=== PATIENT | male | born 1975 | race Two or more races ===

== ENCOUNTER 2025-05-10 05:43 | Inpatient (IN) | payer OTHER ==
[~2025-05-10] VITALS: Ht 175.3 cm; Wt 116.0 kg
[2025-05-10 06:03] VITALS: BP 142/90; PULSE 68; RESP 20; TEMP 96.3; O2SAT 97
--- NOTE | 2025-05-10 06:24 | ED.PDOC ---
HPI Comments 49-year-old male presents here with chest discomfort. He states this occurred earlier this morning. He states it awoke him up from sleep. Reports it as a pressure-like tightening squeezing pain to his mid chest with no radiation. He had had associated dizziness, nausea, dry heaving. He stated this lasted 45 minutes. EMS was called where he was given baby aspirin and nitroglycerin. He states once he was given the nitroglycerin the pain went away completely. No history of similar type of pain in the past. Patient is not a diabetic, nonsmoker no hypertension. No history of similar type of pain. Currently pain free. Denies any recent cough cold runny nose fever or chills. Chief Complaint: Chest Pain Time Seen by MD: 06:25 Reviewed Notes: Nurses Notes, Casting Finisher Notes, Medications, Allergies Allergies: Coded Allergies: No Known Drug Allergy (Verified Allergy, Unknown, 05/10/25) Information Source: Patient, Emergency Med Personnel Mode of Arrival: EMS Severity: Moderate Timing: Hours Duration: Since onset Prehospital treatment: None Location: Substernal Onset: At Rest Cardiac Risk Factors: None PE Risk Factors: None History of: None Modifying Factors: Nothing Associated Signs and Symptoms: None Past Medical History PAST MEDICAL HISTORY: Denies Surgical History: Denies all surgeries Family History Family History: Unknown Social History Smoker: Non-Smoker Alcohol: Denies ETOH Use Drugs: Denies Drug Use Lives In: Home Constitutional: denies: chills, diaphoresis, fatigue, fever, malaise, sweats, weakness, others EENTM: denies: blurred vision, double vision, ear bleeding, ear discharge, ear drainage, ear pain, ear ringing, eye pain, eye redness, hearing loss, mouth pain, mouth swelling, nasal discharge, nose bleeding, nose congestion, nose pain, photophobia, tearing, throat pain, throat swelling, voice changes, others Respiratory: denies: cough, hemoptysis, orthopnea, SOB at rest, shortness of breath, SOB with excertion, stridor, wheezing, others Cardiovascular: reports: chest pain; denies: dizzy spells, diaphoresis, Dyspnea on exertion, edema, irregular heart beat, left arm pain, lightheadedness, palpitations, PND, syncope, others Gastrointestinal: denies: abdomen distended, abdominal pain, blood streaked bowels, constipated, diarrhea, dysphagia, difficulty swallowing, hematemesis, melena, nausea, poor appetite, poor fluid intake, rectal bleeding, rectal pain, vomiting, others Genitourinary: denies: burning, dysuria, flank pain, frequency, hematuria, incontinence, penile discharge, penile sore, pain, testicle pain, testicle swelling, urgency, others Neurological: denies: dizziness, fainting, headache, left sided numbness, left sided weakness, numbness, paresthesia, pre-existing deficit, right sided numbness, right sided weakness, seizure, speech problems, tingling, tremors, weakness, others Musculoskeletal: denies: back pain, gout, joint pain, joint swelling, muscle pain, muscle stiffness, neck pain, others Integumetry: denies: bruises, change in color, change in hair/nails, dryness, laceration, lesions, lumps, rash, wounds, others Allergic/Immunocompromised: denies: Difficulty Healing, Frequent Infections, Hives, Itching, others Hematologic/Lymphatic: denies: anemia, blood clots, easy bleeding, easy bruising, swollen glands, others Endocrine: denies: excessive hunger, excessive sweating, excessive thirst, excessive urination, flushing, intolerance to cold, intolerance to heat, unexplained weight gain, unexplained weight loss, others Psychiatric: denies: anxiety, bipolar disorder, depression, hopeless, panic disorder, schizophrenia, sleepless, suicidal, others All Other Systems: Reviewed and Negative Physical Exam General Appearance: No Apparent Distress, Normal HEENT: Normal ENT Inspection, Pharynx Normal Neck: Full Range of Motion, Non-Tender, Normal, Normal Inspection Respiratory: Chest Non-Tender, Lungs Clear, No Accessory Muscle Use, No Respiratory Distress, Normal Breath Sounds Cardiovascular: No Edema, No Murmur, No Gallop, Normal Peripheral Pulses, Regular Rate/Rhythm Breast Exam: Deferred Gastrointestinal: No Organomegaly, Non Tender, No Pulsatile Mass, Normal Bowel Sounds, Soft Genitalia: Deferred Pelvic: Deferred Rectal: Deferred Extremities: No calf tenderness, Normal capillary refill, Normal inspection, Normal range of motion, Non-tender, No pedal edema Musculoskeletal : Apperance: Normal Neurologic: Alert, enrollment manager II-XII nml as Tested, No Motor Deficits, Normal Affect, Normal Mood, No Sensory Deficits Cerebellar Function: Normal Reflexes: Normal Skin: Dry, Normal Color, Warm Lymphatic: No Adenopathy EKG EKG #1: Comments 5:48 a.m.. Rate of 59 sinus rhythm with no significant ST changes EKG #2: Comments 6:48 a.m.. Sinus rhythm rate of 57, no significant ST changes. Was a procedure done? Was a procedure done?: No CP Differential Dx Differential Diagnosis: Heart Failure, DC, PSVT, Pulmonary Embolus Differential Diagnosis: HTN Essential, HTN Accelerated Differential Diagnosis: Angina, Aortic dissection, Chest Wall Pain, Costochondritis, Gastritis, Myocardial Infarction, Pericarditis, Pneumothorax, Pulmonary Embolus X-Ray, Labs, Meds, VS Vital Signs Date Time Temp Pulse Resp B/P (MAP) Pulse Ox O2 Delivery O2 Flow Rate FiO2 05/10/25 06:48 57 05/10/25 06:19 97.2 62 22 138/83 (101) 97 97.2 05/10/25 05:48 59 Lab Test 05/10/25 06:14 05/10/25 06:11 Range/Units White Blood Count 9.9 4.4-10.8 10^3/uL Red Blood Count 4.57 4.5-5.90 10^6/uL Hemoglobin 15.3 13.5-17.5 g/dL Hematocrit 45.2 41.0-53.0 % Mean Corpuscular Volume 98.8 80.0-100.0 fL Mean Corpuscular Hemoglobin 33.5 H 28.0-32.0 pg Mean Corpuscular Hemoglobin Concent 33.9 32.0-36.0 g/dL Red Cell Distribution Width 12.8 11.8-14.3 % Platelet Count 245 140-450 10^3/uL Mean Platelet Volume 7.7 6.9-10.8 fL Neutrophils (%) (Auto) 71.9 37.0-80.0 % Lymphocytes (%) (Auto) 17.2 10.0-50.0 % Monocytes (%) (Auto) 7.3 0.0-12.0 % Eosinophils (%) (Auto) 2.9 0.0-7.0 % Basophils (%) (Auto) 0.7 0.0-2.0 % Neutrophils # (Auto) 7.1 1.6-8.6 10 ^3/uL Lymphocytes # (Auto) 1.7 0.4-5.4 10 ^3/uL Monocytes # (Auto) 0.7 0-1.3 10 ^3/uL Eosinophils # (Auto) 0.3 0-0.8 10 ^3/uL Basophils # (Auto) 0.1 0-0.2 10 ^3/uL Nucleated Red Blood Cells 0.0 % Sodium Level 143 136-145 mmol/L Potassium Level 3.5 3.5-5.1 mmol/L Chloride Level 109 H 98-107 mmol/L Carbon Dioxide Level 27 20-31 mmol/L Anion Gap 7 5-15 Blood Urea Nitrogen 16 9-23 mg/dL Creatinine Pending Glomerular Filtration Rate Calc Pending BUN/Creatinine Ratio Pending Serum Glucose 119 H 74-106 mg/dL Calcium Level 9.6 8.7-10.4 mg/dL Troponin I High Sensitivity 16 </=54 ng/L B-Type Natriuretic Peptide Pending 49-year-old male presents here with chest discomfort that awoke him up from sleep. Patient was given aspirin by EMS and nitroglycerin. Pain improved completely with nitroglycerin. At this time EKG x2 within normal limits. First troponin negative. CBC BMP within normal limits. At this time though I am concerned about acute coronary syndrome. Hospitalist team has been contacted for admission. Time of 1ST Reevaluation: 06:55 Reevaluation 1ST: Unchanged Patient Education/Counseling: Diagnosis, Treatment Family Education/Counseling: No Family Present SEPSIS Sepsis Screen Physician Orders Basic Metabolic Panel (05/10/25 06:02) Electrocardigram (05/10/25 06:02) B-Type Natriuretic Peptide (05/10/25 06:02) Chest Xray 1 View (05/10/25 06:02) Vital Signs Q1HR (05/10/25 06:02) Electrocardigram (05/10/25 07:02) Electrocardigram (05/10/25 09:02) Troponin-I Hs (05/10/25 07:02) Troponin-I Hs (05/10/25 09:02) Vital Signs Date Time Temp Pulse Resp B/P (MAP) Pulse Ox O2 Delivery O2 Flow Rate FiO2 05/10/25 06:48 57 05/10/25 06:19 97.2 62 22 138/83 (101) 97 97.2 05/10/25 05:48 59 Laboratory Tests Test 05/10/25 06:14 White Blood Count 9.9 10^3/uL (4.4-10.8) Departure 1 Departure Time of Disposition: 08:00 Impression: Primary Impression: Chest pain Qualified Codes: R07.9 - Chest pain, unspecified Disposition: ADMITTED INPATIENT Condition: Stable Critical Care Note Critical Care Time?: No Stability Stability form required: No Heart Score Heart Score: Heart Score Response (Comments) Value History Highly Suspicious 2 EKG Normal 0 Age 45-64 1 Risk Factors 1 or 2 risk factors 1 Troponin Normal limit 0 Total 4 I personally scribed for ERNIE GORMAN MD ([email or web address]) on 05/10/25 at 06:24. Electronically submitted by Lissa Jones ([email or web address]). I personally scribed for ERNIE GORMAN MD ([email or web address]) on 05/10/25 at 06:56. Electronically submitted by Lissa Jones [email or web address]). ERNIE GORMAN MD May 10, 2025 06:24
[2025-05-10 06:53] LABS: Hematocrit 45.2 % (41.0-53.0); Hemoglobin 15.3 g/dL (13.5-17.5); Mean Corpuscular Hemoglobin 33.5 pg (28.0-32.0); Mean Corpuscular Volume 98.8 fL (80.0-100.0); Nucleated Red Blood Cells % 0.0 %
[2025-05-10 06:58] LABS: Potassium 3.5 mmol/L (3.5-5.1); Sodium 143 mmol/L (136-145)
[2025-05-10 06:59] LABS: Anion Gap 7 (5-15); Calcium 9.6 mg/dL (8.7-10.4); Carbon Dioxide 27 mmol/L (20-31); Chloride 109 mmol/L (98-107)
[2025-05-10 07:04] LABS: Blood Urea Nitrogen 16 mg/dL (9-23)
[2025-05-10 07:14] LABS: Glucose 119 mg/dL (74-106)
[2025-05-10 07:26] LABS: BUN/Creatinine Ratio 16.0 (10.0-20.0)
--- NOTE | 2025-05-10 07:29 | DVH ---
CHEST RADIOGRAPH Indication: cp Technique: XY CHEST XRAY 1 VIEW Comparison: None FINDINGS: The cardiac silhouette is unremarkable. The lungs demonstrate bilateral lower lobe airspace opacifica tion. The pulmonary vasculature is unremarkable. There is no pleural effusion.. There is no pneumotho rax. IMPRESSION: Bilateral lower lobe airspace opacification
[2025-05-10] MEDS ORDERED: ACETAMINOPHEN 325 MG TAB PO PRN (08:15)
[2025-05-10] MEDS ORDERED: MORPHINE SULFATE INJ 2 MG/ml SYRG IV PRN ×2 (08:15)
[2025-05-10] MEDS ORDERED: HYDROcodone-ACET 5/325MG TAB PO PRN (08:15)
[2025-05-10] MEDS ORDERED: NITROGLYCERIN 0.4 MG SL TAB SL PRN (08:15)
[2025-05-10] MEDS ORDERED: ONDANSETRON HCL 4 MG/2 ML VIAL IV PRN (08:15)
--- NOTE | 2025-05-10 08:15 | DVHHP2 ---
History of Present Illness Reason for Visit: Chest pain History of Present Illness 49-year-old male with no known past medical history aside from marijuana use presents to the emergency department with a chief complaint of chest pain. The patient reports waking up with a sharp, pressure-like, tightening, and squeezing pain in the mid chest without radiation. He describes the pain as similar to a "charley horse" cramp in the chest. The episode lasted approximately 45 minutes and was associated with shortness of breath, nausea, dry heaving, and lightheadedness. Due to the severity of symptoms, the patient called 911 and was administered aspirin and nitroglycerin by EMS, after which the chest pain resolved. He denies prior similar episodes. Family history is significant for cardiovascular disease on the paternal side, with his grandfather having from a myocardial infarction and his father having a history of angina. The patient's BMI is 38.8. Initial workup in the emergency department revealed a negative 1st troponin, a 12 lead ECG showing normal sinus rhythm with no acute ischemic changes, and a chest x-ray showing bilateral lower low lobe airspace opacities. Past Medical History Denies Past Surgical History Denies Family History Reviewed, non-contributory to the management of this case. Past Social History Marijuana use Denies tobacco or alcohol abuse Review of Systems Constitutional: Yes: Malaise; No: Fever, Chills, Sweats, Weakness, Other Eyes: No: Pain, Vision change, Conjunctivae inflammation, Eyelid inflammation, Other, Redness ENT: No: Ear pain, Ear discharge, Nose pain, Nose discharge, Nose congestion, Mouth pain, Mouth swelling, Throat pain, Throat swelling, Other Respiratory: No: Cough, Dry, Shortness of breath, SOB with excertion, Wheezing, Hemoptysis, Pleuritic Pain, Sputum, Wheezing, Other Cardiovascular: Chest Pain, Lt Headedness, Other; No: Palpitations, Orthopnea, Paroxysmal Noc. Dyspnea, Edema Gastrointestinal: Nausea; No: Vomiting, Abdominal Pain, Diarrhea, Constipation, Melena, Hematochezia, Other Genitourinary: No Dysuria, No Frequency, No Incontinence, No Hematuria, No Retention, No Other Musculoskeletal: No: other, neck pain, shoulder pain, arm pain, back pain, hand pain, leg pain, foot pain Skin: No: Rash, Lesions, Jaundice, Bruising, Other Neurological: No: Weakness, Numbness, Incoordination, Change in speech, Confusion, Seizures, Other Allergies: Coded Allergies: No Known Drug Allergy (Verified Allergy, Unknown, 05/10/25) Medications Current Medications Medications Dose Ordered Sig/Bev Route Start Time Stop Time Status Last Admin Dose Admin Acetaminophen/ Hydrocodone Bitart 1 tab Q4HP PRN PO 05/10/25 08:15 UNV Ondansetron HCl 4 mg Q4HP PRN IV 05/10/25 08:15 UNV Enoxaparin Sodium 40 mg DAILY SC 05/10/25 10:00 UNV Acetaminophen 650 mg Q6HP PRN PO 05/10/25 08:15 UNV Morphine Sulfate 2 mg Q4HPRN PRN IV 05/10/25 08:15 UNV Nitroglycerin 0.4 mg Q5MINP PRN SL 05/10/25 08:15 UNV Morphine Sulfate 2 mg Q30M PRN IV 05/10/25 08:15 UNV Exam Vital Signs Vital Signs Date Time Temp Pulse Resp B/P (MAP) Pulse Ox O2 Delivery O2 Flow Rate FiO2 05/10/25 06:48 57 05/10/25 06:19 97.2 22 138/83 (101) 97 97.2 General Appearance: Alert, Oriented X3, Cooperative, No acute distress, Other (Obese) HEENT: Atraumatic, PERRLA, EOMI Respiratory: Clear to auscultation, Normal air movement Cardiovascular: Regular rate, Normal S1, Normal S2, No murmurs, Gallops Abdominal: Normal bowel sounds, Soft, No tenderness, No hepatospenomegaly Extremities: No clubbing, No cyanosis, No edema, Normal pulses Skin: No rashes, No breakdown, No significant lesion Neuro: Normal gait, Normal speech, Strength at 5/5 X4 ext, Normal tone Psych/Mental Status: Mental status NL Labs/Xrays Labs Test 05/10/25 07:04 05/10/25 06:14 05/10/25 06:11 Range/Units Troponin I High Sensitivity 15 </=54 ng/L White Blood Count 9.9 4.4-10.8 10^3/uL Red Blood Count 4.57 4.5-5.90 10^6/uL Hemoglobin 15.3 13.5-17.5 g/dL Hematocrit 45.2 41.0-53.0 % Mean Corpuscular Volume 98.8 80.0-100.0 fL Mean Corpuscular Hemoglobin 33.5 H 28.0-32.0 pg Mean Corpuscular Hemoglobin Concent 33.9 32.0-36.0 g/dL Red Cell Distribution Width 12.8 11.8-14.3 % Platelet Count 245 140-450 10^3/uL Mean Platelet Volume 7.7 6.9-10.8 fL Neutrophils (%) (Auto) 71.9 37.0-80.0 % Lymphocytes (%) (Auto) 17.2 10.0-50.0 % Monocytes (%) (Auto) 7.3 0.0-12.0 % Eosinophils (%) (Auto) 2.9 0.0-7.0 % Basophils (%) (Auto) 0.7 0.0-2.0 % Neutrophils # (Auto) 7.1 1.6-8.6 10 ^3/uL Lymphocytes # (Auto) 1.7 0.4-5.4 10 ^3/uL Monocytes # (Auto) 0.7 0-1.3 10 ^3/uL Eosinophils # (Auto) 0.3 0-0.8 10 ^3/uL Basophils # (Auto) 0.1 0-0.2 10 ^3/uL Nucleated Red Blood Cells 0.0 % Sodium Level 143 136-145 mmol/L Potassium Level 3.5 3.5-5.1 mmol/L Chloride Level 109 H 98-107 mmol/L Carbon Dioxide Level 27 20-31 mmol/L Anion Gap 7 5-15 Blood Urea Nitrogen 16 9-23 mg/dL Creatinine 1.00 0.700-1.30 mg/dL Glomerular Filtration Rate Calc 92 >90 mL/min BUN/Creatinine Ratio 16.0 10.0-20.0 Serum Glucose 119 H 74-106 mg/dL Calcium Level 9.6 8.7-10.4 mg/dL PROCEDURE(s): CXR1 - CHEST XRAY 1 VIEW REASON: cp ORDER NUMBER(s): [id number], ACCESSION NUMBER(s): [id number] CHEST RADIOGRAPH Indication: cp Technique: XY CHEST XRAY 1 VIEW Comparison: None FINDINGS: The cardiac silhouette is unremarkable. The lungs demonstrate bilateral lower lobe airspace opacification. The pulmonary vasculature is unremarkable. There is no pleural effusion.. There is no pneumothorax. IMPRESSION: Bilateral lower lobe airspace opacification SEPSIS Sepsis Screen Date sepsis recognized/suspect: May 10, 2025 Time Sepsis recognized/suspect: 599 Recent Procedure: No On Antibiotic Therapy: No Respiratory Rate >20: No Heart Rate >90: No Temp<36 C (96.8 F) or >38.3 C: No SBP <90 or MAP <65 mmHG: No New Acute Mental Status Change: No Is the patient on CPAP, BIPAP,: No Physician Orders Electrocardigram (05/10/25 06:02) B-Type Natriuretic Peptide (05/10/25 06:02) Chest Xray 1 View (05/10/25 06:02) Vital Signs Q1HR (05/10/25 06:02) Electrocardigram (05/10/25 07:02) Electrocardigram (05/10/25 09:02) Troponin-I Hs (05/10/25 09:02) Admit (05/10/25 08:04) Code Status (05/10/25 08:04) Hydrocodone-Acet 5/325mg Tab (Coden 5/32 (05/10/25 08:15) Ondansetron Hcl (Zofran) (05/10/25 08:15) Enoxaparin Sodium (Lovenox) (05/10/25 10:00) Fall Risk Precautions In Place QSHIFT (05/10/25 08:04) Complete Blood Count (05/11/25 04:00) Comprehensive Metabolic Panel (05/11/25 04:00) Cardiac Diet-2gna,Lofat,Lochol (05/10/25 Breakfast) Echo 2d Mode Cardiac Dop (05/10/25 08:04) Condition: Fair (05/10/25 08:04) Acetaminophen Tablet (Tylenol Tablet) (05/10/25 08:15) Morphine Sulfate Injection (05/10/25 08:15) Nitroglycerin Sublingual (Ntrostat Subli (05/10/25 08:15) Morphine Sulfate Injection (05/10/25 08:15) Stat Ekg For Chest Pain (05/10/25 08:04) Notify Md Of Changes From Base (05/10/25 08:04) Meat Counter Worker For 24 Hours (05/10/25 08:04) Emergency Dysrhythmia Protocol (05/10/25 08:04) Rhythm Strips Once Every Shift (05/10/25 08:04) Oxygen By Nasal Cannula (05/10/25 08:04) Thyroid Stimulating Hormone (05/10/25 08:04) Lipid Panel (05/10/25 08:04) Hemoglobin A1c (05/10/25 08:04) * Cardiology Consult (05/10/25 08:04) Vital Signs Date Time Temp Pulse Resp B/P (MAP) Pulse Ox O2 Delivery O2 Flow Rate FiO2 05/10/25 06:48 57 05/10/25 06:19 97.2 62 22 138/83 (101) 97 97.2 05/10/25 05:48 59 Laboratory Tests Test 05/10/25 06:14 White Blood Count 9.9 10^3/uL (4.4-10.8) Assessment/Plan Assessment/Plan # Acute chest pain --resolved, concerning for possible cardiac etiology versus atypical presentation * Resolved with nitroglycerin and aspirin--raises concern for angina, despite initial negative workup * Family history of CAD; obesity * Admit to telemetry unit # rule out acute coronary syndrome--heart score 4 * Chest pain protocol - continue aspirin 81mg qd * Serial troponin x3 * Repeat ECG * Cardiology consult # bilateral lower lobe airspace opacities on x-ray * Clear lung sounds * Monitor and repeat x-ray in a.m. # obesity # hyperglycemia * Counseled on weight as some modifiable risk factor for cardiovascular disease * Check lipid panel, A1c, and TSH # marijuana use * Counseled on potential cardiovascular and respiratory effects * Of chronic use recommend cessation or reduction * UDS DVT prophylaxis Medical plan discussed with patient and spouse Plan discussed with: Patient, Spouse My Orders Orders - JUNIE ROBERTSON Procedure Category Date Status Time Admit ADMIT 05/10/25 Transmitted 08:04 Code Status CODE 05/10/25 Transmitted 08:04 Hydrocodone-Acet PHA 05/10/25 Logged 5/325mg Tab (Coden 08:15 Ondansetron Hcl PHA 05/10/25 Logged (Zofran) 08:15 Enoxaparin Sodium PHA 05/10/25 Logged (Lovenox) 10:00 Fall Risk Precautions [place] 05/10/[address] 08:04 Complete Blood Count LAB 05/11/25 Verified 04:00 Comprehensive LAB 05/11/25 Verified Metabolic Panel 04:00 Cardiac DIET 05/10/25 Transmitted Diet-2gna,Lofat,Lochol Breakfast Echo 2d Mode Cardiac US 05/10/25 Logged DOP 08:04 Condition: Fair [facility] 05/10/25 In Process 08:04 Acetaminophen Tablet PHA 05/10/25 Logged (Tylenol Tablet) 08:15 Morphine Sulfate PHA 05/10/25 Logged Injection 08:15 Nitroglycerin [facility] 05/10/25 Logged Sublingual (Ntrostat 08:15 Morphine Sulfate [facility] 05/10/25 Logged Injection 08:15 Stat Ekg For Chest [facility] 05/10/25 In Process Pain 08:04 Notify Of Changes [facility] 05/10/25 In Process From Base 08:04 Meat Counter Worker For [facility] 05/10/25 In Process 24 Hours 08:04 Emergency Dysrhythmia [facility] 05/10/25 In Process Protocol 08:04 Rhythm Strips Once [facility] 05/10/25 In Process Every Shift 08:04 Oxygen By Nasal RT 05/10/25 Transmitted Cannula 08:04 Thyroid Stimulating LAB 05/10/25 Logged Hormone 08:04 Lipid Panel LAB 05/10/25 Logged 08:04 Hemoglobin A1c LAB 05/10/25 Logged 08:04 * Cardiology Consult CONS 05/10/25 Transmitted 08:04 Date of Service: May 10, 2025 Billing Provider: JUNIE ROBERTSON Common Visit Codes: [id number] INP/OBS CARE (HIGH) Consultation Codes: [id number] CONSULT <45MIN JUNIE ROBERTSON May 10, 2025 08:15
[2025-05-10 08:30] VITALS: PULSE 64; RESP 19; O2SAT 100
--- NOTE | 2025-05-10 08:57 | ECG ---
[facility] Test Date: 2025-05-10 Test Time: 08:55:20 Pat Name: GLORIA BURCH Department: ED Room: 0239T Gender: M Assessment Specialist: ERIC : [id number] Requested By: ZEUS YEE Order Number: [id number] Reading MD: Ron Caceres Measurements Intervals Kaplan Rate: 57 P: 20 [place]: 136 QRS: 72 QRSD: 92 T: 0 QT: 389 QTc: 379 Interpretive Statements Sinus rhythm Electronically Signed On 05-11-2025 19:30:36 PDT by Ron Caceres Please click the below link to view image of tracing.
[2025-05-10 09:10] LABS: Triglycerides 99 mg/dL (< 150)
[2025-05-10 09:12] LABS: Cholesterol 129 mg/dL (< 200); HDL Cholesterol 31 mg/dL (40-59)
[2025-05-10] MEDS: ENOXAPARIN SOD 40 MG/0.4 ML SYRINGE SC SCH (10:19)
--- NOTE | 2025-05-10 13:03 | DVHINCON2 ---
Date Seen: May 10, 2025 Referring Physician Nusrat Reason for Consultation Chest Pain History of Present Illness 49-year-old male with no significant past medical history presents to the hospital with chest pain. Chest pain noted to be retrosternal, sudden onset for which it woke patient up around 3:24 a.m. from sleep. Nonradiating. Cramping pressure in nature. Upon evaluation in the ER troponin negative EKG negative for acute ischemic changes. Past Medical History Negative Past Surgical History Denies Social History Denies tobacco use, occasional cannabinoid use and alcohol consumption. Allergies: Coded Allergies: No Known Drug Allergy (Verified Allergy, Unknown, 05/10/25) Current Medications Current Medications Medications (Trade) Dose Ordered Sig/Bev Route PRN Reason Start Time Stop Time Status Last Admin Acetaminophen/ Hydrocodone Bitart ([place] 5/325MG Tab) 1 tab Q4HP PRN PO MODERATE PAIN (4-6 PAIN SCALE) 05/10/25 08:15 Ondansetron HCl (Zofran) 4 mg Q4HP PRN IV NAUSEA / VOMITING 05/10/25 08:15 Enoxaparin Sodium (Lovenox) 40 mg DAILY SC 05/10/25 10:00 05/10/25 10:19 Acetaminophen (Tylenol Tablet) 650 mg Q6HP PRN PO PAIN SCALE 1-3 OR TEMP>100.4 05/10/25 08:15 Morphine Sulfate 2 mg Q4HPRN PRN IV SEVERE PAIN (7-10 PAIN SCALE) 05/10/25 08:15 Nitroglycerin (Ntrostat Sublingual) 0.4 mg Q5MINP PRN SL FOR CHEST PAIN 05/10/25 08:15 Morphine Sulfate 2 mg Q30M PRN IV FOR CHEST PAIN 05/10/25 08:15 Aspirin 81 mg DAILY PO 05/10/25 10:00 05/10/25 10:19 Review of Systems Constitutional: No: Fever, Chills, Sweats, Weakness, Malaise, Other Eyes: No: Pain, Vision change, Conjunctivae inflammation, Eyelid inflammation, Other, Redness ENT: No: Ear pain, Ear discharge, Nose pain, Nose discharge, Nose congestion, Mouth pain, Mouth swelling, Throat pain, Throat swelling, Other Respiratory: No: Cough, Dry, Shortness of breath, SOB with exertion, Wheezing, Hemoptysis, Pleuritic Pain, Sputum, Wheezing, Other Cardiovascular: ; No: Chest Pain Palpitations, Orthopnea, Paroxysmal Noc. Dyspnea, Edema, Lt Headedness, Other Gastrointestinal: No: Nausea, Vomiting, Abdominal Pain, Diarrhea, Constipation, Melena, Hematochezia, Other Genitourinary: No Dysuria, No Frequency, No Incontinence, No Hematuria, No Retention, No Other Musculoskeletal: neck pain; No: other, shoulder pain, arm pain, back pain, hand pain, leg pain, foot pain Skin: No: Rash, Lesions, Jaundice, Bruising, Other Neurological: Other (Dizziness, headache.); No: Weakness, Numbness, Incoordination, Change in speech, Confusion, Seizures Vital Signs Vital Signs Date Time Temp Pulse Resp B/P (MAP) Pulse Ox O2 Delivery O2 Flow Rate FiO2 05/10/25 10:30 68 16 113/80 (91) 97 05/10/25 08:30 Room Air* 0 21 05/10/25 08:30 98.1 98.1 Physical Exam General appearance: Patient is well-developed, well-nourished, in no acute distress. HEENT: Exam shows: Normocephalic, atraumatic, PERRLA, EOMI Neck: Supple, no bruits Chest: Equal chest excursion bilaterally. Breath sounds normal-no rales or wheezes. Heart: Rhythm: Regular rate; no murmur or gallop Abdomen: Exam shows: Soft, nontender, nondistended Musculoskeletal: No clubbing, no cyanosis, no lower extremity edema Dermatology: Skin warm, moist. Neurological: Exam shows: Alert and oriented x4, normal speech Available prior records, labs, EKG, rhythm strips reviewed and interpreted Labs/Diagnostic Data Labs Test 05/10/25 08:52 05/10/25 07:04 05/10/25 06:14 05/10/25 06:11 Range/Units Hemoglobin A1c 5.6 <5.7 % A1C Troponin I High Sensitivity 14 </=54 ng/L Triglycerides Level 99 < 150 mg/dL Cholesterol Level 129 < 200 mg/dL LDL Cholesterol 89 < 100 mg/dL HDL Cholesterol 31 L 40-59 mg/dL Thyroid Stimulating Hormone (TSH) 1.67 0.55-4.78 uIU/mL White Blood Count 9.9 4.4-10.8 10^3/uL Red Blood Count 4.57 4.5-5.90 10^6/uL Hemoglobin 15.3 13.5-17.5 g/dL Hematocrit 45.2 41.0-53.0 % Mean Corpuscular Volume 98.8 80.0-100.0 fL Mean Corpuscular Hemoglobin 33.5 H 28.0-32.0 pg Mean Corpuscular Hemoglobin Concent 33.9 32.0-36.0 g/dL Red Cell Distribution Width 12.8 11.8-14.3 % Platelet Count 245 140-450 10^3/uL Mean Platelet Volume 7.7 6.9-10.8 fL Neutrophils (%) (Auto) 71.9 37.0-80.0 % Lymphocytes (%) (Auto) 17.2 10.0-50.0 % Monocytes (%) (Auto) 7.3 0.0-12.0 % Eosinophils (%) (Auto) 2.9 0.0-7.0 % Basophils (%) (Auto) 0.7 0.0-2.0 % Neutrophils # (Auto) 7.1 1.6-8.6 10 ^3/uL Lymphocytes # (Auto) 1.7 0.4-5.4 10 ^3/uL Monocytes # (Auto) 0.7 0-1.3 10 ^3/uL Eosinophils # (Auto) 0.3 0-0.8 10 ^3/uL Basophils # (Auto) 0.1 0-0.2 10 ^3/uL Nucleated Red Blood Cells 0.0 % Sodium Level 143 136-145 mmol/L Potassium Level 3.5 3.5-5.1 mmol/L Chloride Level 109 H 98-107 mmol/L Carbon Dioxide Level 27 20-31 mmol/L Anion Gap 7 5-15 Blood Urea Nitrogen 16 9-23 mg/dL Creatinine 1.00 0.700-1.30 mg/dL Glomerular Filtration Rate Calc 92 >90 mL/min BUN/Creatinine Ratio 16.0 10.0-20.0 Serum Glucose 119 H 74-106 mg/dL Calcium Level 9.6 8.7-10.4 mg/dL B-Type Natriuretic Peptide 17.69 0-100 pg/mL Assessment * Chest Pain - Atypical. Troponin negative. EKG normal on review. Per patient had recent cardiac [facility]2 months that was negative. * Bilateral lower lobe opacities on CXR - r/o early pneumonia. Management per primary team. Case Discussed with Dr Rodarte. Given normal troponins and EKG, with recent ischemic workup with normal EKG stress test, there is no further cardiac work-up indicated at this time. Patient to continue outpatient follow up at [place]. Thank you for allowing us to participate in this patient's care. Will sign off. Critical care, time spent: 35 minutes This medical document was created using an electronic medical record system with voice recognition software and computerized dictation system. Although this document has been carefully reviewed, there might still be some phonetic and typographical errors. Occasional wrong-word or ``sound-alike substitutions may have occurred due to the inherent limitations of voice recognition software. These areas are purely typographical due to imperfections of the software programs and do not reflect any compromise in the patient's medical care. Please read the chart carefully and recognize, using context, where these substitutions have occurred. Thank you for allowing me to participate in the management of this patient. The treatment plan was discussed with and agreed upon by patient/family including requesting consultants and ordering of imaging/procedures. Plan discussed with: Patient, Spouse NYHA Physical activity limitations: NA Date of Service: May 10, 2025 Billing Provider: MAT MARTIN Cardiology Common Codes: 13445-AMJYVDA INP/OBS CARE (High), [id number] CARE 30-74 MIN MAT MARTIN May 10, 2025 13:03
--- NOTE | 2025-05-10 15:55 | DVHSR ---
APPROVED REPORT EXAM: Two-dimensional and M-mode echocardiogram with Doppler and color Doppler. Blood Pressure: 137/84 mmHg INDICATION Chest Pain RISK FACTORS Height: 5' 10", Weight: 235 DIMENSIONS LVDd4.8 (3.8-5.7cm)LA (2D)4.3 (1.9-4.0cm)Aortic Root3.0 (2.0-3.7cm) LVDs2.9 (2.5-4.0cm)LA (MM) (1.9-4.0cm)Aortic Cusp Exc1.9 (1.5-2.0cm) EF (%) 68.0 (55-70%)Rt. Atrium4.8 (1.9-4.0cm)Asc. Aorta cm IVSd1.0 (0.7-1.1cm)RV (D) (1.8-2.4cm) PWd0.9 (0.7-1.1cm) Mitral Valve MitralMitral Stenosis E wave1.20m/sMV Mean GR.mmHg A wave0.80m/sMV Peak GR.mmHg E/A ratio1.52D MVAcm2 Aortic Valve Aortic ValveAortic Stenosis V10.80m/Zita Mean GR.6mmHg V21.80m/Zita Peak GR.13mmHg LVOT Diameter2.3 (1.8-2.4cm)Doppler AVA1.85cm2 Pulmonic Valve V20.70m/s Tricuspid Valve TR Velocity2.90m/s [id number] Conclusion Left ventricle is normal-sized with normal systolic function. LVEF was 65-70%. There was no gross w all motion abnormality. Right ventricle was mildly dilated with normal systolic function. Left atrium was normal-sized. Rig ht atrium was mildly dilated. Aortic valve was trileaflet. There was no aortic insufficiency/stenosis. There was trace to mild mi tral regurgitation. There was trace tricuspid regurgitation. Pulmonary valve was not well visualize d. As there was no good tricuspid regurgitation jet, right ventricular systolic pressure could not be es timated. IVC was normal-sized with normal respiratory variation. There was no pericardial effusion.
[2025-05-10 17:11] VITALS: BP 142/90; PULSE 68; RESP 20; TEMP 96.3; O2SAT 97
[2025-05-10 20:00] VITALS: PULSE 54; RESP 16
[2025-05-10 21:00] VITALS: BP 138/89; PULSE 68; RESP 18; TEMP 98.2; O2SAT 97
[2025-05-11] VITALS (7 sets, daily range): BP systolic 121–130; BP diastolic 74–86; PULSE 55–71; RESP 18–20; TEMP 98–98.9; O2SAT 94–98
[2025-05-11 06:32] LABS: Hematocrit 45.8 % (41.0-53.0); Hemoglobin 15.8 g/dL (13.5-17.5); Mean Corpuscular Hemoglobin 33.4 pg (28.0-32.0); Mean Corpuscular Volume 96.9 fL (80.0-100.0); Nucleated Red Blood Cells % 0.2 %
[2025-05-11 06:53] LABS: Alanine Aminotransferase 24 U/L (7-40); Anion Gap 7 (5-15); BUN/Creatinine Ratio 9.8 (10.0-20.0); Blood Urea Nitrogen 12 mg/dL (9-23); Calcium 10.1 mg/dL (8.7-10.4); Carbon Dioxide 27 mmol/L (20-31); Glucose 101 mg/dL (74-106); Potassium 4.5 mmol/L (3.5-5.1); Sodium 144 mmol/L (136-145)
[2025-05-11 06:54] LABS: Albumin 4.0 g/dL (3.2-4.8); Total Protein 6.5 g/dL (5.7-8.2)
[2025-05-11 06:55] LABS: Bilirubin, Total 0.8 mg/dL (0.2-1.0); Chloride 110 mmol/L (98-107)
[2025-05-11 06:59] LABS: Alkaline Phosphatase 67 U/L (46-116)
--- NOTE | 2025-05-11 07:09 | DVH ---
CLINICAL INFORMATION: Shortness of breath. TECHNIQUE: Single AP portable chest radiograph was obtained. COMPARISON: XY CHEST XRAY 1 VIEW on DOS: 05/10/25 FINDINGS: Lungs: Clear. Cardiac: Heart size is within normal limits. Pulmonary vasculature: Unremarkable. Mediastinum/genesis: Unremarkable. Bones: No acute osseous abnormality identified. Other: No other significant findings. IMPRESSION: 1. No evidence of acute disease in the chest.
[2025-05-11 11:05] LABS: Urine Protein, UAD Negative (Negative)
[2025-05-11 11:44] LABS: Amphetamine Screen, Urine Neg (NEGATIVE); Benzodiazephine Screen, Urine Neg (NEGATIVE); Cannabinoid Screen, Urine Pos (NEGATIVE); Cocaine Screen, Urine Neg (NEGATIVE); Opiate Scree,Urine Neg (NEGATIVE); Phencyclidine Screen, Urine Neg (NEGATIVE)
[2025-05-11 11:45] LABS: Barbiturate Scree,Urine Neg (NEGATIVE)
--- NOTE | 2025-05-11 13:00 | ECG ---
[facility] Test Date: 2025-05-10 Test Time: 05:48:06 Pat Name: GLORIA BURCH Department: ED Room: 0239T A Gender: M [employer] Caster: : 1975 Requested By: ZEUS YEE Order Number: [id number] Reading MD: Ron Caceres Measurements Intervals [place] Rate: 59 P: 56 PA: 150 QRS: 63 QRSD: 86 T: 24 QT: 390 QTc: 387 Interpretive Statements Sinus rhythm Electronically Signed On 05-11-2025 19:30:17 PDT by Ron Caceres Please click the below link to view image of tracing.
[2025-05-11] MEDS ORDERED: ASPI-325 PO (13:41)
[2025-05-11] MEDS ORDERED: ATOR-507 PO (13:41)
--- NOTE | 2025-05-11 16:14 | DVHDSRES ---
Discharge Summary Date of Admission Resident Creating Document: CLAUDY SZYMANSKI RESIDENT May 10, 2025 at 08:04 Date of Discharge: May 11, 2025 Admitting Diagnosis Chest pain Labs/Diagnostic Data: Laboratory Results Test 05/11/25 10:30 05/11/25 05:48 05/10/25 08:52 05/10/25 07:04 Urine Color Light-yellow (Yellow) Urine Clarity Clear (Clear) Urine pH 7.5 (5.0-9.0) Urine Specific [place] 1.013 (1.001-1.035) Urine Protein Negative (Negative) Urine Ketones Negative (Negative) Urine Blood Negative /uL (Negative) Urine Nitrite Negative (Negative) Urine Bilirubin Negative (Negative) Urine Urobilinogen Normal mg/dL (Negative) Urine Leukocyte Esterase Negative /uL (Negative) Urine RBC 1 /hpf (0 - 3) Urine Microscopic WBC < 1 /HPF (0-3) Urine Squamous Epithelial Cells Few /hpf (<5) Urine Bacteria None seen /hpf (None Seen) Urine Glucose Normal mg/dL (Normal) Urine Opiates Screen Neg (NEGATIVE) Urine Fentanyl Screen Neg (NEGATIVE) Urine Barbiturates Screen Neg (NEGATIVE) Urine Phencyclidine Screen Neg (NEGATIVE) Urine Amphetamines Screen Neg (NEGATIVE) Urine Benzodiazepines Screen Neg (NEGATIVE) Urine Cocaine Screen Neg (NEGATIVE) Urine Cannabinoids Screen Pos (NEGATIVE) White Blood Count 7.5 10^3/uL (4.4-10.8) Red Blood Count 4.72 10^6/uL (4.5-5.90) Hemoglobin 15.8 g/dL (13.5-17.5) Hematocrit 45.8 % (41.0-53.0) Mean Corpuscular Volume 96.9 fL (80.0-100.0) Mean Corpuscular Hemoglobin 33.4 pg (28.0-32.0) Mean Corpuscular Hemoglobin Concent 34.5 g/dL (32.0-36.0) Red Cell Distribution Width 12.7 % (11.8-14.3) Platelet Count 253 10^3/uL (140-450) Mean Platelet Volume 7.7 fL (6.9-10.8) Neutrophils (%) (Auto) 58.8 % (37.0-80.0) Lymphocytes (%) (Auto) 26.6 % (10.0-50.0) Monocytes (%) (Auto) 9.0 % (0.0-12.0) Eosinophils (%) (Auto) 4.3 % (0.0-7.0) Basophils (%) (Auto) 1.3 % (0.0-2.0) Neutrophils # (Auto) 4.4 10 ^3/uL (1.6-8.6) Lymphocytes # (Auto) 2.0 10 ^3/uL (0.4-5.4) Monocytes # (Auto) 0.7 10 ^3/uL (0-1.3) Eosinophils # (Auto) 0.3 10 ^3/uL (0-0.8) Basophils # (Auto) 0.1 10 ^3/uL (0-0.2) Nucleated Red Blood Cells 0.2 % Sodium Level 144 mmol/L (136-145) Potassium Level 4.5 mmol/L (3.5-5.1) Chloride Level 110 mmol/L (98-107) Carbon Dioxide Level 27 mmol/L (20-31) Anion Gap 7 (5-15) Blood Urea Nitrogen 12 mg/dL (9-23) Creatinine 1.22 mg/dL (0.700-1.30) Glomerular Filtration Rate Calc 73 mL/min (>90) BUN/Creatinine Ratio 9.8 (10.0-20.0) Serum Glucose 101 mg/dL (74-106) Calcium Level 10.1 mg/dL (8.7-10.4) Total Bilirubin 0.8 mg/dL (0.2-1.0) Aspartate Amino Transferase (AST) 21 U/L (13-40) Alanine Aminotransferase (ALT) 24 U/L (7-40) Alkaline Phosphatase 67 U/L (46-116) Total Protein 6.5 g/dL (5.7-8.2) Albumin 4.0 g/dL (3.2-4.8) Hemoglobin A1c 5.6 % A1C (<5.7) Troponin I High Sensitivity 14 ng/L (</=54) Triglycerides Level 99 mg/dL (< 150) Cholesterol Level 129 mg/dL (< 200) LDL Cholesterol 89 mg/dL (< 100) HDL Cholesterol 31 mg/dL (40-59) Thyroid Stimulating Hormone (TSH) 1.67 uIU/mL (0.55-4.78) Test 05/10/25 06:11 B-Type Natriuretic Peptide 17.69 pg/mL (0-100) Other Laboratory Tests 05/11/25 05:48 Brief Hx & Hospital Course: The 49-year-old male with previous history of marijuana use comes to the hospital with chest tightness, severe chest pain associated with sweating and lightheadedness. The patient was monitored in telemetry and managed with nitroglycerin, and morphine, aspirin. EKG showed no ischemic changes, chest x- ray normal. Troponin into 3 was negative. Cardiology was consulted no follow- up is required right now. The patient was hemodynamically stable, the symptoms improved the discharge plan was discussed with the patient and patient agreed. Patient was counseled on the side effects of marijuana use and was encouraged to live a healthy lifestyle. Patient is required to follow up within 1 week with PCP and hand laminator. Pt is lying on bed General Appearance: Alert, Oriented X3, Cooperative, Mild distress HEENT: Atraumatic, Mucous membranes moist/pink Respiratory: Clear to auscultation, Normal air movement, No added sounds Cardiovascular: Regular rate, Normal S1, Normal S2, No murmurs Abdominal/ : Active bowel sounds, Soft, no distention, no tenderness Extremities: No edema, Normal pulses, No tenderness/swelling Skin: No Significant rash, except past surgical scars Neuro: Normal speech, sensorimotor deficits none Psych/Mental Status: Mental status NL, Mood NL Nurse was there as heel reducer during examination Operations or Procedures CXR: 1. No evidence of acute disease in the chest. Echocardiogram Left ventricle is normal-sized with normal systolic function. LVEF was 65-70%. There was no gross wall motion abnormality. Right ventricle was mildly dilated with normal systolic function. Left atrium was normal-sized. Right atrium was mildly dilated. Aortic valve was trileaflet. There was no aortic insufficiency/stenosis. There was trace to mild mitral regurgitation. There was trace tricuspid regurgitation. Pulmonary valve was not well visualized. As there was no good tricuspid regurgitation jet, right ventricular systolic pressure could not be estimated. IVC was normal-sized with normal respiratory variation. There was no pericardial effusion. EKG Sinus rhythm Condition at Discharge: Stable Final Diagnosis/Problems List Chest Pain - Atypical Marijuana use dependence Discharge Disposition: Home Discharge Instruct/Medications Diet: Consistent carbohydrate, Cardiac 2g Na,low cholest Activity: No Restrictions, As Tolerated Follow Up/Referral: PCP and cardiology in 1 week Medications: Aspirin p.o. daily once Lipitor 40 mg daily once Pt is lying on bed resume home meds Scheduled Aspirin (Aspirin Low Dose), 81 MG PO DAILY Atorvastatin Calcium (Lipitor), 1 TAB PO QPM Discharge Statement: "Patient was advised to return to the ER or call 911 if any headaches, dizziness, shortness of breath, chest pain, abdominal pain, bleeding, fevers, or worsening of medical condition. Patient was counseled about treatment plan, medications, possible side effects, patientverbalized understanding. All questions were answered to the best of my ability. This discharge took greater then 30 minutes in planning, reviewing documentation, counseling the patient, and discussing with other team members." ASSESSMENT ASSESSMENT Assessment Chest Pain - Atypical Date of Service: May 11, 2025 Billing Provider: MEGAN MUNOZ MD Common Visit Codes: 09698-CIF/OBS DISCH DAY >30min CLAUDY SZYMANSKI May 11, 2025 16:14 MEGAN MUNOZ MD May 12, 2025 08:16
--- NOTE | 2025-05-13 14:20 | ECG ---
[facility] Test Date: 2025-05-10 Test Time: 06:48:10 Pat Name: GLORIA BURCH Department: ER Room: 0239T Gender: M [employer] Supervisor: : 1975 Requested By: ZEUS YEE Order Number: [id number] Reading MD: Measurements Intervals [place] Rate: 57 P: 73 IA: 142 QRS: 73 QRSD: 87 T: 23 QT: 397 QTc: 387 Interpretive Statements Sinus rhythm Left atrial enlargement Please click the below link to view image of tracing.
== END 2025-05-11 16:48 | disposition home or self-care (01) | DRG 313 ==
LOC: EEVIPCON 05:43 → ER 05:43 → EDBD 05:43 → OVERFLOW 08:04 → TELE-EAST 16:33
PROVIDERS: ADMIT Internal Medicine; ATTEND Emergency Medicine
DX: R07.89 Other chest pain (principal); E66.9 Obesity, unspecified; Z68.38 Body mass index [BMI] 38.0-38.9, adult; F12.980 Cannabis use, unspecified with anxiety disorder; R73.9 Hyperglycemia, unspecified; Z82.49 Family history of ischemic heart disease and other diseases of the circulatory system; Z79.82 Long term (current) use of aspirin
CPT/HCPCS: 36415; 71045; 80048; 80053; 80061; 80307; 81001; 83036; 83880; 84443; 84484; 85025; 87040; 93005; 93306; G0378